=== PATIENT | female | born 1960 | race Caucasian/White ===

== ENCOUNTER 2021-10-25 10:38 | Outpatient (CLI) | payer MEDICARE, MEDICAID, SELFPAY ==
[2021-10-25 11:01] LABS: Basophils Percent Auto 1.7 % (0.0-1.0); Eosinophils Absolute Auto 0.14 K/mm3 (0.02-0.50); Eosinophils Percent Auto 2.4 % (1.0-6.0); Hematocrit 29.6 % (35.0-49.0); Hemoglobin 8.9 g/dL (12.0-15.0); Immature Granulocyte Absolute 0.03 K/mm3 (0.00-0.00); Immature Granulocyte Percent A 0.5 % (0.0-0.0); Lymphocytes Absolute Auto 1.24 K/mm3 (1.10-4.50); Lymphocytes Percent Auto 21.6 % (18.0-42.0); Mean Corpuscular HGB Conc 30.1 g/dL (32.0-36.0); Mean Corpuscular Hemoglobin 29.1 pg (27.0-31.0); Mean Corpuscular Volume 96.7 fL (78.0-102.0); Monocytes Absolute Auto 0.86 K/mm3 (0.10-0.90); Neutrophils Absolute Auto 3.4 K/mm3 (1.7-7.2); Neutrophils Percent Auto 58.8 % (50.0-70.0); Platelet Count Result 377 K/mm3 (150-420); Red Blood Count 3.06 M/mm3 (4.20-5.40); Red Cell Distribution Width 17.6 % (11.6-14.4); White Blood Count 5.7 K/mm3 (4.8-10.8)
[2021-10-25 11:20] LABS: Anion Gap 10 mmol/L (8-16); Blood Urea Nitrogen 31 mg/dL (7-18); Calcium 8.6 mg/dL (8.5-10.1); Carbon Dioxide 21 mmol/L (21-32); Chloride 109 mmol/L (98-108); Estimated Glomerular Filt Rate 29; Osmolality Calculated 293 mOsm/kg (285-295); Potassium 5.4 mmol/L (3.5-5.1); Sodium 140 mmol/L (136-145)
[2021-10-25 11:35] LABS: Glucose 49 mg/dL (70-99)
[2021-10-25 11:36] LABS: Vancomycin Trough > 48.0 ug/mL (10.0-15.0)
== END 2021-10-25 10:39 | disposition home or self-care (01) ==
DX: T84.54XA Infection and inflammatory reaction due to internal left knee prosthesis, initial encounter (principal)
CPT/HCPCS: 36415; 80048; 80202; 85025

== ENCOUNTER 2021-10-26 14:29 | Outpatient (CLI) | payer MEDICARE, MEDICAID, SELFPAY ==
[2021-10-26 15:23] LABS: Anion Gap 7 mmol/L (8-16); Blood Urea Nitrogen 28 mg/dL (7-18); Calcium 8.5 mg/dL (8.5-10.1); Carbon Dioxide 23 mmol/L (21-32); Chloride 107 mmol/L (98-108); Estimated Glomerular Filt Rate 31; Glucose 159 mg/dL (70-99); Osmolality Calculated 292 mOsm/kg (285-295); Sodium 137 mmol/L (136-145); Vancomycin Trough 19.1 ug/mL (10.0-15.0)
== END 2021-10-26 14:30 | disposition home or self-care (01) ==
LOC: CHSLAB 14:39
DX: T84.54XA Infection and inflammatory reaction due to internal left knee prosthesis, initial encounter (principal)
CPT/HCPCS: 36415; 80048; 80202

== ENCOUNTER 2021-10-28 13:14 | Emergency (ER) | payer MEDICARE, MEDICAID, SELFPAY ==
--- NOTE | 2021-10-28 13:26 | ECG_ITS ---
Measurements Intervals [place] Rate: 89 P: 28 VA: 145 QRS: -5 QRSD: 95 T: 47 QT: 354 QTc: 433 Interpretive Statements SINUS RHYTHM LEFT VENTRICULAR HYPERTROPHY BORDERLINE ECG NO PREVIOUS ECG AVAILABLE FOR COMPARISON Electronically Signed On 10-28-2021 13:41:41 CDT by Reginald Gray D.O.
[2021-10-28 13:28] VITALS: BP 137/76; PULSE 93; RESP 14; TEMP 36.3; O2SAT 98
[2021-10-28 13:42] VITALS: PULSE 88
[2021-10-28 14:04] LABS: Alanine Aminotransferase 28 U/L (14-59); Albumin Level 3.2 g/dL (3.4-5.0); Alkaline Phosphatase 105 U/L (46-116); Anion Gap 10 mmol/L (8-16); Aspartate Amino Transferase 21 U/L (15-37); Bilirubin,Total 0.3 mg/dL (0.00-1.00); Blood Urea Nitrogen 29 mg/dL (7-18); Calcium 8.3 mg/dL (8.5-10.1); Carbon Dioxide 20 mmol/L (21-32); Chloride 110 mmol/L (98-108); Estimated CRCL calculation 35 ml/min; Estimated Glomerular Filt Rate 30; Glucose 111 mg/dL (70-99); Osmolality Calculated 296 mOsm/kg (285-295); Potassium 5.3 mmol/L (3.5-5.1); Sodium 140 mmol/L (136-145); Total Protein 6.5 g/dL (6.4-8.2)
--- NOTE | 2021-10-28 14:10 | ED.RECABL ---
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 Patient denies any symptoms there was no palpitations no chest pain no shortness of breath no fever chills no nausea vomiting. Initial visit (ago): day(s) Related Data Allergies Allergy/AdvReac Type Severity Reaction Status Date / Time No Known Allergies Allergy Verified 10/28/21 13:37 Review of Systems Review of Systems: All systems reviewed & are unremarkable except as noted in HPI and below PMFSH Surgical History Surgical History History of total knee arthroplasty Exam Const: General: healthy appearing and no acute distress Nutritional Appearance: well nourished HENMT: Head: normal to inspection Face and sinus: normal facial exam Eyes: Conjunctivae: conjunctivae normal Pupils: Equal, round and reactive pupils present Neck: Neck: normal visual inspection Chest: Chest palpation & inspection: normal inspection of the chest Resp: Effort & Inspection: normal respiratory effort Cardio: Rate: regular rate Rhythm: regular rhythm GI: GI Palp: Yes Soft to palpation Auscultation: normal bowel sounds Back/Spine/Pelvis: Back: no CVA tenderness Skin: General skin exam: normal color Rashes: no rashes Wounds: no wounds Neuro: General: patient oriented x3 and moves all extremities Cranial nerves: Yes Nystagmus not present Speech: normal speech Extrem: General: normal to inspection and no clubbing, cyanosis or edema Psych: Mental Status: mental status grossly normal Affect: normal affect Course Course Emergency Course: patient EKG performed shows normal sinus rhythm with no abnormal T-waves, CMP performed shows that her potassium level is 5.3, she does have an elevated creatinine of 1.73 address this with the patient and told her to drink plenty of fluids and stay hydrated. Otherwise continue follow-up with your ID specialist and her primary care physician. Vital Signs Vital signs: Vital Signs Temperature 36.3 C L 10/28/21 13:28 Pulse Rate 93 10/28/21 13:28 Respiratory Rate 14 10/28/21 13:28 Blood Pressure 137/76 10/28/21 13:28 Pulse Oximetry 98 10/28/21 13:28 Oxygen Delivery Room Air 10/28/21 13:28 Temperature 36.3 C L 10/28/21 13:28 Pulse Rate 88 10/28/21 13:42 Respiratory Rate 14 10/28/21 13:28 Blood Pressure 137/76 10/28/21 13:28 Pulse Oximetry 98 10/28/21 13:28 Oxygen Delivery Room Air 10/28/21 13:28 MDM - Recheck/Abnormal Lab/Rx Lab Data Result diagrams: 10/28/21 13:44 Labs: Lab Results 10/28/21 Range/Units 13:44 Sodium 140 (136-145) mmol/L Potassium 5.3 H (3.5-5.1) mmol/L Chloride 110 H (98-108) mmol/L Carbon Dioxide 20 L (21-32) mmol/L Anion Gap 10 (8-16) mmol/L BUN 29 H (7-18) mg/dL Creatinine 1.74 H (0.55-1.02) mg/dL Estim Creat Clear Calc 35 ml/min Estimated GFR 30 L (59 - ) Glucose 111 H (70-99) mg/dL Calculated Osmolality 296 H (285-295) mOsm/kg Calcium 8.3 L (8.5-10.1) mg/dL Total Bilirubin 0.3 (0.00-1.00) mg/dL AST 21 (15-37) U/L ALT 28 (14-59) U/L Alkaline Phosphatase 105 (46-116) U/L Total Protein 6.5 (6.4-8.2) g/dL Albumin 3.2 L (3.4-5.0) g/dL Critical Care Time Critical Care Time Critical Care Time: No Discharg
[2021-10-28 14:36] VITALS: BP 124/65; PULSE 92; RESP 20; TEMP 36.7; O2SAT 98
== END 2021-10-28 14:40 | disposition home or self-care (01) ==
PROVIDERS: Emergency Provider Emergency Medicine
DX: E87.5 Hyperkalemia (principal); N18.9 Chronic kidney disease, unspecified; Z96.652 Presence of left artificial knee joint
CPT/HCPCS: 36415; 80053; 93005; 99283